=== PATIENT | male | born 1945 | race Caucasian/White ===

== ENCOUNTER → 2018-06-19 09:34 | Outpatient (CLI) | payer MEDICARE, BC, SELFPAY ==
--- NOTE | 2018-07-11 07:43 | PM.CARDMON.1 ---
Shrimp Peeling Machine Tender Report Referral & Results Date Patient Seen: 06/19/18 Requesting provider: Natasha Villalpando Indication: Bradycardia Duration of monitoring (days): 7 Diary information: There were no patient diary entries and no patient triggered events Data: Minimum heart rate identified was 41 beats per minute at 03:25 on 06/26/2018 Maximum heart rate was 147 beats per minute at 14:48 on 06/22/2018 Less than 1% of identified beats were supraventricular ectopic in origin however approximately 4.1% of identified depolarizations were ventricular ectopic in origin with total being approximately 29,000 that included 5 min plus of ventricular trigeminy and up to 21 sec of ventricular bigeminy No significant pauses of 3 sec or longer were identified Impression: PVCs as above including ventricular trigeminy and bigeminy Mild bradycardia with minimum heart rate being 41 but overall patient's heart rate appeared to be greater than 50 the vast vast majority of the time and only rarely dip down under that level Clinical correlation suggested
--- NOTE | 2018-07-11 07:46 | P.HOLT.S_ITS ---
Public Health Specialist Report Referral & Results Date Patient Seen: 06/19/18 Requesting provider: Natasha Villalpanod Indication: Bradycardia Duration of monitoring (days): 7 Diary information: There were no patient diary entries and no patient triggered events Data: Minimum heart rate identified was 41 beats per minute at 03:25 on 2017 Maximum heart rate was 147 beats per minute at 14:48 on 06/22/2018 Less than 1% of identified beats were supraventricular ectopic in origin however approximately 4.1% of identified depolarizations were ventricular ectopic in origin with total being approximately 29,000 that included 5 min plus of ventricular trigeminy and up to 21 sec of ventricular bigeminy No significant pauses of 3 sec or longer were identified Impression: PVCs as above including ventricular trigeminy and bigeminy Mild bradycardia with minimum heart rate being 41 but overall patient's heart rate appeared to be greater than 50 the vast vast majority of the time and only rarely dip down under that level Clinical correlation suggested
== END ==
PROVIDERS: Family Provider Internal Medicine; PCP Family Medicine; Visit Provider Family Medicine
DX: R00.1 Bradycardia, unspecified (principal)
CPT/HCPCS: 0296T; 0298T

== ENCOUNTER → 2018-08-14 14:26 | Outpatient (CLI) | payer MEDICARE, BC, SELFPAY | PROVIDERS: Family Provider Internal Medicine; PCP Family Medicine; Visit Provider Family Medicine | DX: R31.9 Hematuria, unspecified (principal) | CPT/HCPCS: 87086 ==

== ENCOUNTER → 2018-08-14 15:02 | Outpatient (CLI) | payer MEDICARE, BC, SELFPAY ==
[2018-08-14 16:30] LABS: Add Manual Diff / Slide Review NO; Basophils Absolute Auto 200 /uL (0-100); Basophils Percent Auto 2.1 % (0-2); Eosinophils Absolute Auto 300 /uL (0-450); Eosinophils Percent Auto 3.8 % (2-4); Hemoglobin 16.1 g/dL (13.5-17.5); Lymphocytes Absolute Auto 1400 /uL (1100-4500); Lymphocytes Percent Auto 18.5 % (25-40); Mean Corpuscular HGB Conc 34.2 % (30-36); Mean Corpuscular Hemoglobin 31.6 PG (26-34); Mean Corpuscular Volume 92.4 fL (80-100); Monocytes Absolute Auto 700 /uL (0-900); Monocytes Percent Auto 9.1 % (3-14); Neutrophils Absolute Auto 4900 /uL (1500-7000); Neutrophils Percent Auto 66.5 % (50-75); Platelet Count 227 X10^3/uL (150-400); Red Blood Cell Count 5.09 X10^6/uL (4.5-5.9); Red Cell Distribution Width 13.7 % (11.6-14.8); White Blood Cell Count 7.4 X10^3/uL (4.5-11.0)
[2018-08-14 16:54] LABS: Alanine Aminotransferase 60 IU/L (21-72); Albumin 4.8 g/dL (3.5-5.0); Albumin Globulin Ratio 1.7 (1.0-2.8); Alkaline Phosphatase 70 U/L (38-126); Aspartate Aminotransferase 41 IU/L (17-59); Bilirubin Total 0.4 mg/dL (0.2-1.3); Blood Urea Nitrogen 42 mg/dL (9-20); Calcium 10.7 mg/dL (8.4-10.2); Carbon Dioxide 26 mmol/L (22-32); Chloride 103 mmol/L (98-107); Estimated Glomerular Filt Rate 45.7 mL/min (>60); Globulin 2.9 g/dL (1.7-4.1); Glucose 102 mg/dL (80-110); HEMOLYSIS < 15 (0-50); Potassium 4.9 mmol/L (3.4-5.1); Sodium 141 mmol/L (137-145); Total Protein 7.7 g/dL (6.3-8.2)
== END ==
PROVIDERS: PCP Family Medicine; Visit Provider Family Medicine
DX: R31.9 Hematuria, unspecified (principal)
CPT/HCPCS: 36415; 80053; 85025; 87086

== ENCOUNTER → 2018-09-01 07:32 | Outpatient (CLI) | payer MEDICARE, BC, SELFPAY ==
[2018-09-01 09:08] LABS: BUN Creatinine Ratio 15.7 (6-22); Blood Urea Nitrogen 22 mg/dL (9-20); Calcium 9.5 mg/dL (8.4-10.2); Carbon Dioxide 24 mmol/L (22-32); Chloride 100 mmol/L (98-107); Estimated Glomerular Filt Rate 49.5 mL/min (>60); Glucose 115 mg/dL (80-110); HEMOLYSIS < 15 (0-50); Potassium 4.4 mmol/L (3.4-5.1); Sodium 137 mmol/L (137-145)
== END ==
PROVIDERS: PCP Family Medicine; Visit Provider Family Medicine
DX: R63.8 Other symptoms and signs concerning food and fluid intake (principal)
CPT/HCPCS: 36415; 80048

== ENCOUNTER → 2018-11-23 07:19 | Outpatient (CLI) | payer MEDICARE, BC, SELFPAY ==
[2018-11-23 08:32] LABS: Alanine Aminotransferase 53 IU/L (21-72); Albumin 4.3 g/dL (3.5-5.0); Albumin Globulin Ratio 1.5 (1.0-2.8); Alkaline Phosphatase 77 U/L (38-126); Aspartate Aminotransferase 41 IU/L (17-59); BUN Creatinine Ratio 24.2 (6-22); Bilirubin Total 0.6 mg/dL (0.2-1.3); Blood Urea Nitrogen 46 mg/dL (9-20); Calcium 9.9 mg/dL (8.4-10.2); Carbon Dioxide 23 mmol/L (22-32); Chloride 104 mmol/L (98-107); Estimated Glomerular Filt Rate 34.8 mL/min (>60); Globulin 2.9 g/dL (1.7-4.1); Glucose 111 mg/dL (80-110); HEMOLYSIS < 15 (0-50); Potassium 4.5 mmol/L (3.4-5.1); Sodium 138 mmol/L (137-145); Total Protein 7.2 g/dL (6.3-8.2)
[2018-11-23 09:02] LABS: Prostate Specific Antigen 2.05 ng/mL (0.10-4.00)
== END ==
PROVIDERS: PCP Family Medicine; Visit Provider Family Medicine
DX: Z12.5 Encounter for screening for malignant neoplasm of prostate (principal)
CPT/HCPCS: 36415; 80053; 84153; G0103

== ENCOUNTER 2019-04-03 14:32 | Emergency (ER) | payer MEDICARE, BC, SELFPAY ==
--- NOTE | 2019-04-03 14:42 | DI.RAD.S_ITS ---
PROCEDURE: XR FINGER LT MIN 2V INDICATIONS: injury TECHNIQUE: AP hand, 2 views of the 3rd left digit(s) acquired. COMPARISON: None. FINDINGS: Soft tissue swelling about the distal aspect of the left 3rd digit is present with an associated skin laceration. There is an overlying bandage, which does result in suboptimal evaluation of the underlying bony structures for subtle abnormalities. No obvious displaced fractures are appreciated. There is no dislocation. No definitive radiopaque foreign bodies are evident. IMPRESSION: Limited evaluation of the distal phalanx of the 3rd left digit related to overlying bandage material. No obvious fractures are appreciated. No definite radiopaque foreign bodies are evident. Please consider repeating the examination with the bandage removed. Dictated by: Christopher Clarke M.D. on 04/03/2019 at 14:19 Approved by: Christopher Clarke M.D. on 04/03/2019 at 14:21
[2019-04-03 14:43] VITALS: BP 167/70; PULSE 60; RESP 12; TEMP 36.4; O2SAT 97
[2019-04-03] MEDS: TET,DIPH,PERTUSS(ACELL),VAC/PF 0.5 ML SYRINGE IM (14:55)
[2019-04-03] MEDS: ACETAMINOPHEN 325 MG TABLET 975 MG PO (15:23)
--- NOTE | 2019-04-03 15:25 | PC.NURSE ---
clippers cut tip of left 3rd finger almost off, hanging by small amount of lateral skin. Laceration is @ 1/3 below top of nail. Unsure if bone involvement. wet dressing applied.
[2019-04-03] MEDS: LIDO 1%/SOD BICARB 8.4% (10ML) 10 ML SYRINGE INJ (16:32)
[2019-04-03] MEDS: BACITRACIN OINT 0.9 GM PCKT 1 APPLIC TOP (16:33)
[2019-04-03 16:38] VITALS: BP 154/76; PULSE 56; RESP 18; O2SAT 98
--- NOTE | 2019-04-03 23:19 | ED_ITS ---
HPI - Wound/Laceration <ASHVIN Al - Last Filed: 04/03/19 23:35> General Chief Complaint: Wound/Laceration Stated Complaint: left hand middle finger Time Seen by Provider: 04/03/19 15:17 Source: patient Mode of arrival: Ambulatory Limitations: no limitations History of Present Illness HPI narrative: This is a pleasant 73-year-old male, nonsmoker, who presents with his spouse after he injured left middle finger distal tip by garden shear that had been used by his spouse. Patient stays on known last tetanus immunization. Right dominant hand. Patient denies any other injuries from this. He reports some throbbing pain on affected site and bleeding has somewhat controlled by direct pressure at triage. Related Data Home Medications Medication Instructions Recorded Confirmed aspirin 81 mg tablet,delayed 81 mg PO DAILY 04/12/18 02/15/19 release cholecalciferol (vitamin D3) 5,000 5,000 unit PO DAILY 04/12/18 02/15/19 unit capsule mecobalamin (vitamin B12) 1,000 1,000 mcg SL DAILY 04/12/18 02/15/19 mcg disintegrating tablet,sublingual multivitamin 1 tab PO DAILY 04/12/18 02/15/19 omega-3 fatty acids 1,000 mg 1,400 mg PO DAILY cap 04/12/18 02/15/19 capsule Respironics Dreamstation CPAP #1 ea 02/01/19 02/15/19 Previous Rx's Medication Instructions Recorded chlorthalidone 50 mg tablet 50 mg PO DAILY #90 tab 08/14/18 lisinopril 40 mg tablet 40 mg PO DAILY #90 tab 09/06/18 allopurinol 300 mg tablet 300 mg PO DAILY #90 tab 03/22/19 simvastatin 20 mg tablet 20 mg PO DAILY #90 tab 03/22/19 cephalexin [Keflex] 500 mg PO QID 7 Days #28 cap 04/03/19 Allergies Allergy/AdvReac Type Severity Reaction Status Date / Time clarithromycin Allergy Unknown Verified 02/15/19 08:20 Review of Systems <ASHVIN Al - Last Filed: 04/03/19 23:35> Review of Systems ROS Unobtainable: All systems reviewed & are unremarkable except as noted in HPI and below PFSH <ASHVIN Al - Last Filed: 04/03/19 23:35> Medical History Colon polyps (Chronic) Gout (Chronic) Kidney stones (Chronic ~04/2014) Melanoma (Chronic) Mumps (Resolved) Skin cancer (Chronic) Sleep apnea (Chronic) Surgical History Anesthesia (Resolved) History of colonoscopy (Resolved) History of eyelid surgery (Resolved ~2014) Status post Mohs surgery (Resolved) Family History Father No problems noted. Mother Heart disease Hypertension Hyperlipidemia Stroke Grandfather No problems noted. Grandmother No problems noted. Social History marital status: number of children: 2 household members: spouse education level: high school occupational status: other (retired) Smoking Status: Never smoker alcohol intake: current (socially) substance use type: does not use Family History Father No problems noted. Mother Heart disease Hypertension Hyperlipidemia Stroke Grandfather No problems noted. Grandmother No problems noted. Social History marital status: number of children: 2 household members: spouse education level: high school occupational status: other (retired) Smoking Status: Never smoker alcohol intake: current (socially) substance use type: does not use Exam <ASHVIN Al - Last Filed: 04/03/19 23:35> Narrative Exam Narrative: General appearance: well developed, well nourished, in no acute distress. Head: normocephalic, atraumatic, no scalp lesions, non-tender. Eye: pupil equal, round. EOMI. Nose: nares patent. Oral: mucosa moist. Neck/Thyroid: neck supple, full range of motion, no visible masses. Skin: Deep laceration involving left middle distal finger tip and nail. no suspicious rashes, lesions over other visible areas. Warm and dry. Heart: no clubbing, no cyanosis, no edema. Lungs: Breathing even and unlabored. No stridor. No accessory muscles used. Chest: normal shape and expansion. Abdomen: non-obese, non-distended. Neurologic: alert and oriented. Cognitive exam, BARREL SCRAPER and PNS grossly intact on informal exam. Psych: good eye contact, normal affect. Initial Vital Signs Initial Vital Signs: Vital Signs Temperature 97.5 F L 04/03/19 14:43 Pulse Rate 60 04/03/19 14:43 Respiratory Rate 12 04/03/19 14:43 Blood Pressure 167/70 H 04/03/19 14:43 Pulse Oximetry 97 04/03/19 14:43 Extrem Left upper extremity: hand Details: abnormal to inspection, neurosensory exam normal, tenderness, normal ROM of fingers and laceration 3rd digit distal Details: avulsion (Almost complete avulsion around left finger tip involving small tip of nail) and actively bleeding (Slow wheezing); no pulsatile bleeding, no foreign body present and not contaminated; no swelling <Kalpana Murry DO - Last Filed: 04/04/19 07:08> Initial Vital Signs Initial Vital Signs: Vital Signs Temperature 97.5 F L 04/03/19 14:43 Pulse Rate 60 04/03/19 14:43 Respiratory Rate 12 04/03/19 14:43 Blood Pressure 167/70 H 04/03/19 14:43 Pulse Oximetry 97 04/03/19 14:43 Procedures <ASHVIN Al - Last Filed: 04/03/19 23:35> Laceration Repair Laceration 1: Site: upper extremity (Distal middle finger tip almost complete avulsion involving small area tip of nail) Side (If applicable): left Size (cm): 1.5 Description: other (Incomplete circumferential on tip of digit) Depth: simple, single layer Local Anesthetic: lidocaine 1% and with bicarb Pre-repair: wound explored and irrigated extensively Skin layer closed with: nylon Size (cm): 4-0 Number of sutures: 5 Technique: simple, interrupted Orthopedic Splinting/Casting Injury #1: Side: left Upper Extremity Injury Location: finger (Third finger tip) Upper Extremity Immobilizer: aluminum form splint (To protect laceration repair) Post splinting neuro exam: intact Post splinting vascular exam: intact Placed by: Nursing Course <ASHVIN Al - Last Filed: 04/03/19 23:35> Orders Ordered: Discontinued Medications Acetaminophen (Tylenol) 975 mg PO NOW ONE Stop: 04/03/19 15:17 Last Admin: 04/03/19 15:23 Dose: 975 mg Documented by: MANUEL Bacitracin (Bacitracin) 1 applic TOP NOW ONE Stop: 04/03/19 15:33 Last Admin: 04/03/19 16:33 Dose: 1 applic Documented by: MANUEL Diphtheria/Tetanus/Acell Pertussis (Adacel) 0.5 ml IM .ONCE ONE Stop: 04/03/19 14:50 Last Admin: 04/03/19 14:55 Dose: 0.5 ml Documented by: RAFFIAPO Lidocaine/Sodium Bicarbonate (Buffered Lidocaine 10 Ml Syr) 10 ml INJ NOW ONE Stop: 04/03/19 15:33 Last Admin: 04/03/19 16:32 Dose: 10 ml Documented by: MANUEL Vital Signs Vital signs: Vital Signs - 8 hr 04/03/19 16:38 Pulse Rate 56 L Respiratory Rate 18 Blood Pressure [Right Arm] 154/76 H Pulse Oximetry 98 <Kalpana Murry DO - Last Filed: 04/04/19 07:08> Orders Ordered: Discontinued Medications Acetaminophen (Tylenol) 975 mg PO NOW ONE Stop: 04/03/19 15:17 Last Admin: 04/03/19 15:23 Dose: 975 mg Documented by: MANUEL Bacitracin (Bacitracin) 1 applic TOP NOW ONE Stop: 04/03/19 15:33 Last Admin: 04/03/19 16:33 Dose: 1 applic Documented by: MANUEL Diphtheria/Tetanus/Acell Pertussis (Adacel) 0.5 ml IM .ONCE ONE Stop: 04/03/19 14:50 Last Admin: 04/03/19 14:55 Dose: 0.5 ml Documented by: RAFFIAPO Lidocaine/Sodium Bicarbonate (Buffered Lidocaine 10 Ml Syr) 10 ml INJ NOW ONE Stop: 04/03/19 15:33 Last Admin: 04/03/19 16:32 Dose: 10 ml Documented by: MANUEL Vital Signs Vital signs: Vital Signs - 8 hr 04/03/19 16:38 Pulse Rate 56 L Respiratory Rate 18 Blood Pressure [Right Arm] 154/76 H Pulse Oximetry 98 MDM - Wound/Laceration <Reji Margy PATENT CHEMIST - Last Filed: 04/03/19 23:35> Differential Diagnosis Differential diagnosis: Likely laceration and other (Open fracture) Medical Records Attestation: I reviewed the patient's medical records. MDM Narrative Medical decision making narrative: This is a pleasant 73-year-old gentleman who had injured his left 3rd finger tip by a guard ensure was used by his . Please see procedure note. Patient had soaked the affected finger in Hibiclens water before the procedure. Tdap has updated and the patient tolerated the procedure well. X-ray test shows no obvious displaced fractures were appreciat ed. I discussed in details with patient and spouse about dressing change and signs and symptoms for infection to monitor. Tubular gauze dressing was applied with aluminum splint to protect the finger tip and sutures. Patient was treated with Keflex 7 day course q.i.d. for prophylactically. Return precautions were discussed with the patient and spouse and advised to follow up with primary care physician in 2-3 days for wound recheck and suture removal in 7-10 days. Patient advised to take [id number] Tylenol or Motrin as needed and elevate affected finger next couple of days. The patient and spouse agree with treatment plan and verbalized understanding Discharge Plan Departure Patient Disposition: Home Clinical Impression: Laceration Discharge Date/Time: 04/03/19 16:45 Instructions: DI for Laceration Repair Activity Restrictions/Additional Instructions: You have been diagnosed with [laceration and repair on the left 3rd finger]. What to do: *Take your medications as directed. Antibiotic medication Keflex has been transmitted to [facility], please take 4 times a day for next 7 days to prevent infection. Please do not get your wound soaked in the water until suture removal. Keep your dressing intact for next 24 hrs. After then, you could remove your dressing, wash with soap and water. Pat dry with clean paper towel and dress it with antibiotic ointment. You can change dressing as needed and daily. Please monitor for signs and symptoms for infection such as increasing redness, swelling, warmth, pain, fever, purulent discharge. If this occurs, please return to ED or follow up with your primary care physician since your wound may be gotten infected. Please follow up with your primary care provider in 2-3 days for recheck wound. Your suture should be removed [ 7-10 ] days. This can be done by your primary provider, walk-in clinic or here in ED. Please keep your wound clean, dry and intact all times. Prescriptions: New cephalexin [Keflex] 500 mg capsule 500 mg PO QID 7 Days Qty: 28 RF: 0 No Action simvastatin 20 mg tablet 20 mg PO DAILY Qty: 90 RF: 3 allopurinol 300 mg tablet 300 mg PO DAILY Qty: 90 RF: 3 omega-3 fatty acids [Fish Oil Concentrate] 1,000 mg capsule 1,400 mg PO DAILY RF: 0 mecobalamin (vitamin B12) 1,000 mcg tablet,disintegrating 1,000 mcg SL DAILY RF: 0 aspirin [Adult Low Dose Aspirin] 81 mg tablet,delayed release (DR/EC) 81 mg PO DAILY RF: 0 cholecalciferol (vitamin D3) 5,000 unit capsule 5,000 unit PO DAILY RF: 0 multivitamin tablet 1 tab PO DAILY RF: 0 chlorthalidone 50 mg tablet 50 mg PO DAILY Qty: 90 RF: 3 lisinopril 40 mg tablet 40 mg PO DAILY Qty: 90 RF: 3 (DME) Respironics Dreamstation CPAP Qty: 1 RF: 0 Referrals: Natasha Villalpando DO [Primary Care Provider] -
== END 2019-04-03 16:45 | disposition home or self-care (01) ==
PROVIDERS: Emergency Provider Nurse Practitioner Family; PCP Family Medicine
DX: S61.213A Laceration without foreign body of left middle finger without damage to nail, initial encounter (principal); Z23 Encounter for immunization
CPT/HCPCS: 12001; 73140; 90471; 99283; 90715

== ENCOUNTER → 2019-04-10 10:25 | Outpatient (CLI) | payer MEDICARE, BC, SELFPAY ==
[2019-04-10 12:06] LABS: Appearance Urine UA CLEAR; Bilirubin Urine UA NEGATIVE (NEGATIVE); Color Urine UA YELLOW; Glucose Urine UA NEGATIVE (Negative); Ketones Urine UA NEGATIVE (NEGATIVE); Leukocyte Esterase Urine UA 1+ (NEGATIVE); Nitrite Urine UA NEGATIVE (Negative); Occult Blood Urine UA NEGATIVE (Negative); Protein Urine UA NEGATIVE (Negative); Urobilinogen Urine UA 0.2 E.U./dL (0.2); pH Urine UA 7.5 (4.5-8.0)
[2019-04-10 12:09] LABS: Albumin 4.4 g/dL (3.5-5.0); Blood Urea Nitrogen 28 mg/dL (9-20); Calcium 10.1 mg/dL (8.4-10.2); Carbon Dioxide 26 mmol/L (22-32); Chloride 103 mmol/L (98-107); Estimated Glomerular Filt Rate 49.4 mL/min (>60); Glucose 115 mg/dL (80-110); HEMOLYSIS < 15 (0-50); Phosphorous 2.8 mg/dL (2.3-3.7); Potassium 4.4 mmol/L (3.4-5.1); Sodium 138 mmol/L (137-145)
[2019-04-10 12:21] LABS: Creatinine Urine Random 60.3 mg/dL
[2019-04-10 12:40] LABS: Bacteria Urine Occasional (0-1); Culture Indicated Urine Specimen Cultured; RBC Urine 1-5/HPF (0-5/HPF); WBC Urine 5-10/HPF (0-5/HPF)
[2019-04-10 19:23] LABS: Microalbumi Creatinin Ratio Ur 19.9 ug/mg CR (<30); Microalbumin Urine Random 1.2 mg/dL (0-1.6)
== END ==
PROVIDERS: PCP Family Medicine; Visit Provider Internal Medicine Nephrology
DX: N18.3 Chronic kidney disease, stage 3 (moderate) (principal)
CPT/HCPCS: 36415; 80069; 81001; 82043; 82570; 87086

== ENCOUNTER → 2020-06-19 07:27 | Outpatient (CLI) | payer MEDICARE, BC, SELFPAY ==
[2020-06-19 08:01] LABS: Add Manual Diff / Slide Review NO; Basophils Absolute Auto 100 /uL (0-100); Basophils Percent Auto 1.7 % (0-2); Eosinophils Absolute Auto 500 /uL (0-450); Eosinophils Percent Auto 6.2 % (2-4); Hematocrit 43.1 % (41-53); Hemoglobin 14.4 g/dL (13.5-17.5); Lymphocytes Absolute Auto 1900 /uL (1100-4500); Lymphocytes Percent Auto 26.2 % (25-40); Mean Corpuscular HGB Conc 33.5 % (30-36); Mean Corpuscular Volume 95.7 fL (80-100); Monocytes Absolute Auto 700 /uL (0-900); Monocytes Percent Auto 9.6 % (3-14); Neutrophils Absolute Auto 4100 /uL (1500-7000); Neutrophils Percent Auto 56.3 % (50-75); Platelet Count 179 X10^3/uL (150-400); Red Cell Distribution Width 13.9 % (11.6-14.8); White Blood Cell Count 7.3 X10^3/uL (4.5-11.0)
[2020-06-19 08:07] LABS: Alanine Aminotransferase 46 IU/L (<50); Albumin 4.3 g/dL (3.5-5.0); Albumin Globulin Ratio 1.5 (1.0-2.8); Alkaline Phosphatase 88 U/L (38-126); Aspartate Aminotransferase 39 IU/L (17-59); BUN Creatinine Ratio 23.3 (6-22); Bilirubin Total 0.5 mg/dL (0.2-1.3); Blood Urea Nitrogen 38 mg/dL (9-20); Carbon Dioxide 25 mmol/L (22-32); Chloride 107 mmol/L (98-107); Estimated Glomerular Filt Rate 41.3 mL/min (>60); Globulin 2.9 g/dL (1.7-4.1); Glucose 108 mg/dL (80-110); HEMOLYSIS < 15 (0-50); Potassium 4.4 mmol/L (3.4-5.1); Sodium 140 mmol/L (137-145); Total Protein 7.2 g/dL (6.3-8.2)
== END ==
PROVIDERS: PCP Family Medicine; Referring Provider Family Medicine; Visit Provider Family Medicine
DX: N18.9 Chronic kidney disease, unspecified (principal)
CPT/HCPCS: 36415; 80053; 85025

== ENCOUNTER → 2020-07-01 06:52 | Outpatient (CLI) | payer MEDICARE, BC, SELFPAY ==
[2020-07-01 09:16] LABS: BUN Creatinine Ratio 22.5 (6-22); Blood Urea Nitrogen 31 mg/dL (9-20); Calcium 9.7 mg/dL (8.4-10.2); Carbon Dioxide 28 mmol/L (22-32); Chloride 106 mmol/L (98-107); Estimated Glomerular Filt Rate 50.1 mL/min (>60); Glucose 103 mg/dL (80-110); HEMOLYSIS < 15 (0-50); Potassium 4.7 mmol/L (3.4-5.1); Sodium 139 mmol/L (137-145)
== END ==
PROVIDERS: PCP Family Medicine; Referring Provider Family Medicine; Visit Provider Family Medicine
DX: N18.31 Chronic kidney disease, stage 3a (principal)
CPT/HCPCS: 36415; 80048

== ENCOUNTER → 2021-03-16 06:47 | Outpatient (CLI) | payer MEDICARE, BC, SELFPAY | PROVIDERS: PCP Family Medicine; Referring Provider Family Medicine; Visit Provider Family Medicine | DX: G47.33 Obstructive sleep apnea (adult) (pediatric) (principal); Y82.9 Unspecified medical devices associated with adverse incidents; Z77.29 Contact with and (suspected) exposure to other hazardous substances ==

== ENCOUNTER → 2021-03-26 06:55 | Outpatient (CLI) | payer MEDICARE, BC, SELFPAY ==
[2021-03-26 08:16] LABS: BUN Creatinine Ratio 16.3 (6-22); Blood Urea Nitrogen 22 mg/dL (9-20); Calcium 9.8 mg/dL (8.4-10.2); Carbon Dioxide 26 mmol/L (22-32); Chloride 105 mmol/L (98-107); Estimated Glomerular Filt Rate 51.2 mL/min (>60); Glucose 103 mg/dL (80-110); HEMOLYSIS < 15 (0-50); Potassium 4.9 mmol/L (3.4-5.1); Sodium 138 mmol/L (137-145)
== END ==
PROVIDERS: PCP Family Medicine; Referring Provider Family Medicine; Visit Provider Family Medicine
DX: N18.9 Chronic kidney disease, unspecified (principal)
CPT/HCPCS: 36415; 80048

== ENCOUNTER → 2022-09-17 09:04 | Outpatient (CLI) | payer MEDICARE, SELFPAY ==
[2022-09-17 11:40] LABS: Add Manual Diff / Slide Review NO; Basophils Absolute Auto 100 /uL (0-100); Basophils Percent Auto 1.4 % (0-2); Eosinophils Absolute Auto 300 /uL (0-450); Eosinophils Percent Auto 5.6 % (2-4); Hematocrit 43.2 % (41-53); Hemoglobin 15.1 g/dL (13.5-17.5); Lymphocytes Absolute Auto 1700 /uL (1100-4500); Lymphocytes Percent Auto 27.7 % (25-40); Mean Corpuscular Hemoglobin 32.7 PG (26-34); Mean Corpuscular Volume 93.3 fL (80-100); Monocytes Absolute Auto 600 /uL (0-900); Neutrophils Absolute Auto 3500 /uL (1500-7000); Neutrophils Percent Auto 56.3 % (50-75); Platelet Count 189 X10^3/uL (150-400); Red Blood Cell Count 4.63 X10^6/uL (4.5-5.9); Red Cell Distribution Width 13.9 % (11.6-14.8); White Blood Cell Count 6.2 X10^3/uL (4.5-11.0)
[2022-09-17 12:10] LABS: Alanine Aminotransferase 47 IU/L (<50); Albumin 4.5 g/dL (3.5-5.0); Albumin Globulin Ratio 1.6 (1.0-2.8); Alkaline Phosphatase 96 U/L (38-126); Aspartate Aminotransferase 42 IU/L (17-59); BUN Creatinine Ratio 20.1 (6-22); Bilirubin Total 0.5 mg/dL (0.2-1.3); Blood Urea Nitrogen 27 mg/dL (9-20); Calcium 9.3 mg/dL (8.4-10.2); Carbon Dioxide 25 mmol/L (22-32); Chloride 104 mmol/L (98-107); Cholesterol 149 mg/dL (140-199); Estimated Glomerular Filt Rate 54 mL/min (>60); Globulin 2.8 g/dL (1.7-4.1); Glucose 96 mg/dL (80-110); HDL Cholesterol 37 mg/dL (40-60); HEMOLYSIS < 15 (0-50); LDL Cholesterol Calculated 84 mg/dL (<100); Potassium 4.3 mmol/L (3.4-5.1); Sodium 141 mmol/L (137-145); Total Protein 7.3 g/dL (6.3-8.2); Triglycerides 140 mg/dL (35-150); Uric Acid 6.3 mg/dL (3.5-8.5)
== END ==
PROVIDERS: PCP Family Medicine; Referring Provider Family Medicine; Visit Provider Family Medicine
DX: I10 Essential (primary) hypertension (principal); N18.9 Chronic kidney disease, unspecified; M10.9 Gout, unspecified; E78.5 Hyperlipidemia, unspecified
CPT/HCPCS: 36415; 80053; 80061; 84550; 85025

== ENCOUNTER → 2024-01-17 15:08 | Outpatient (CLI) | payer MEDICARE, SELFPAY ==
[2024-01-17 16:06] LABS: Hematocrit 41.7 % (41-53); Hemoglobin 14.5 g/dL (13.5-17.5); Mean Corpuscular HGB Conc 34.9 % (30-36); Mean Corpuscular Hemoglobin 33.3 PG (26-34); Mean Corpuscular Volume 95.6 fL (80-100); Platelet Count 201 X10^3/uL (150-400); Red Blood Cell Count 4.36 X10^6/uL (4.5-5.9); Red Cell Distribution Width 14.2 % (11.6-14.8); White Blood Cell Count 8.7 X10^3/uL (4.5-11.0)
[2024-01-17 16:23] LABS: Alanine Aminotransferase 48 IU/L (<50); Albumin 4.2 g/dL (3.5-5.0); Albumin Globulin Ratio 1.6 (1.0-2.8); Alkaline Phosphatase 82 U/L (38-126); Aspartate Aminotransferase 42 IU/L (17-59); BUN Creatinine Ratio 20.1 (6-22); Bilirubin Total 0.5 mg/dL (0.2-1.3); Blood Urea Nitrogen 32 mg/dL (9-20); Calcium 9.3 mg/dL (8.4-10.2); Carbon Dioxide 20 mmol/L (22-32); Chloride 112 mmol/L (98-107); Cholesterol 157 mg/dL (140-199); Estimated Glomerular Filt Rate 44 mL/min (>60); Globulin 2.6 g/dL (1.7-4.1); Glucose 104 mg/dL (80-110); HDL Cholesterol 34 mg/dL (40-60); HEMOLYSIS < 15 (0-50); LDL Cholesterol Calculated 52 mg/dL (<100); Potassium 4.9 mmol/L (3.4-5.1); Sodium 140 mmol/L (137-145); Total Protein 6.8 g/dL (6.3-8.2); Triglycerides 356 mg/dL (35-150)
[2024-01-17 16:27] LABS: Hemoglobin A1C% w Est Avg Glu 6.1 % (4.0-6.0)
[2024-01-17 16:54] LABS: Prostate Specific Antigen 3.16 ng/mL (0.10-4.00)
[2024-01-17 16:55] LABS: TSH w/ Reflex to FT4 2.08 uIU/mL (0.47-4.68)
== END ==
PROVIDERS: PCP Internal Medicine; Referring Provider Internal Medicine; Visit Provider Internal Medicine
DX: N18.32 Chronic kidney disease, stage 3b (principal); R73.01 Impaired fasting glucose; N40.0 Benign prostatic hyperplasia without lower urinary tract symptoms; E78.2 Mixed hyperlipidemia; M10.9 Gout, unspecified; I10 Essential (primary) hypertension
CPT/HCPCS: 36415; 80053; 80061; 82310; 83036; 83970; 84153; 84443; 85027

== ENCOUNTER → 2024-08-22 07:07 | Outpatient (CLI) | payer MEDICARE, SELFPAY ==
[2024-08-22 08:20] LABS: BUN Creatinine Ratio 15.1 (6-22); Blood Urea Nitrogen 26 mg/dL (9-20); Calcium 9.9 mg/dL (8.4-10.2); Carbon Dioxide 22 mmol/L (22-32); Chloride 106 mmol/L (98-107); Estimated Glomerular Filt Rate 40 mL/min (>60); Glucose 125 mg/dL (80-110); HEMOLYSIS < 15 (0-50); Potassium 4.9 mmol/L (3.4-5.1); Sodium 140 mmol/L (137-145)
== END ==
PROVIDERS: PCP Internal Medicine; Referring Provider Internal Medicine; Visit Provider Internal Medicine
DX: R73.01 Impaired fasting glucose (principal); N18.32 Chronic kidney disease, stage 3b
CPT/HCPCS: 36415; 80048; 83036

== ENCOUNTER → 2025-01-25 06:47 | Outpatient (CLI) | payer MEDICARE, SELFPAY ==
[2025-01-25 07:52] LABS: Hemoglobin A1C% w Est Avg Glu 6.3 % (4.0-6.0)
[2025-01-25 07:55] LABS: Blood Urea Nitrogen 38 mg/dL (9-20); Calcium 9.5 mg/dL (8.4-10.2); Carbon Dioxide 22 mmol/L (22-32); Chloride 107 mmol/L (98-107); Cholesterol 136 mg/dL (140-199); Estimated Glomerular Filt Rate 38 mL/min (>60); Glucose 111 mg/dL (70-99); HDL Cholesterol 30 mg/dL (40-60); HEMOLYSIS < 15 (0-50); Potassium 4.8 mmol/L (3.4-5.1); Sodium 138 mmol/L (137-145); Triglycerides 213 mg/dL (35-150)
[2025-01-25 08:25] LABS: Prostate Specific Antigen 2.77 ng/mL (0.10-4.00)
== END ==
PROVIDERS: PCP Internal Medicine; Referring Provider Internal Medicine; Visit Provider Internal Medicine
DX: R73.01 Impaired fasting glucose (principal); I10 Essential (primary) hypertension; N40.1 Benign prostatic hyperplasia with lower urinary tract symptoms; N18.32 Chronic kidney disease, stage 3b; N13.8 Other obstructive and reflux uropathy
CPT/HCPCS: 36415; 80048; 80061; 83036; 84153; 84450

== ENCOUNTER → 2025-05-06 07:17 | Outpatient (CLI) | payer MEDICARE, SELFPAY ==
[2025-05-06 07:42] LABS: Hemoglobin A1C% w Est Avg Glu 5.7 % (4.0-6.0)
[2025-05-06 07:56] LABS: Alanine Aminotransferase 28 IU/L (<50); Albumin 4.7 g/dL (3.5-5.0); Albumin Globulin Ratio 1.7 (1.0-2.8); Alkaline Phosphatase 82 U/L (38-126); Blood Urea Nitrogen 41 mg/dL (9-20); Calcium 9.9 mg/dL (8.4-10.2); Carbon Dioxide 21 mmol/L (22-32); Chloride 106 mmol/L (98-107); Estimated Glomerular Filt Rate 36 mL/min (>60); Globulin 2.7 g/dL (1.7-4.1); Glucose 114 mg/dL (70-99); HEMOLYSIS < 15 (0-50); Potassium 5.1 mmol/L (3.4-5.1); Sodium 137 mmol/L (137-145); Total Protein 7.4 g/dL (6.3-8.2)
== END ==
PROVIDERS: PCP Internal Medicine; Referring Provider Internal Medicine; Visit Provider Internal Medicine
DX: R73.01 Impaired fasting glucose (principal); N18.32 Chronic kidney disease, stage 3b
CPT/HCPCS: 36415; 80053; 83036